=== PATIENT | male | born 2000 | race Caucasian/White ===

== ENCOUNTER 2022-05-24 16:51 | Emergency (ER) | payer OTHER ==
[2022-05-24] MEDS ORDERED: CYCLOBENZAPRINE10 MG PO (19:01)
[2022-05-24] MEDS ORDERED: MEDROL 4MG DOSEP4 MG PO (19:01)
== END 2022-05-24 19:12 | disposition home or self-care (01) ==
LOC: FER 16:51
DX: S06.0X9A Concussion with loss of consciousness of unspecified duration, initial encounter (principal); S46.912A Strain of unspecified muscle, fascia and tendon at shoulder and upper arm level, left arm, initial encounter; S33.5XXA Sprain of ligaments of lumbar spine, initial encounter; V43.52XA Car driver injured in collision with other type car in traffic accident, initial encounter; Z28.310 Unvaccinated for COVID-19
CPT/HCPCS: 70450; 72125; 72131; 73030